=== PATIENT | male | born 1975 ===

== ENCOUNTER 2020-10-09 08:51 | Outpatient (CLI) | payer OTHER | END 2020-10-09 08:55 | disposition home or self-care (01) | LOC: NUCLEAR 08:51 | PROVIDERS: ATTEND Family Medicine Adult Medicine | DX: R00.2 Palpitations (principal); R06.09 Other forms of dyspnea; Z13.6 Encounter for screening for cardiovascular disorders; Z13.1 Encounter for screening for diabetes mellitus ==